=== PATIENT | female | born 1975 ===

== ENCOUNTER 2017-12-03 16:05 | Emergency (ER) | payer OTHER, SELFPAY ==
[2017-12-03 16:25] VITALS: BP 114/74; PULSE 73; RESP 16; TEMP 98.3; O2SAT 98
--- NOTE | 2017-12-03 19:47 | ED PDOC ---
HPI: General Adult Time Seen by Provider: 12/03/17 16:35 Chief Complaint (Nursing): Chest Pain Chief Complaint (Provider): body aches and chest pain History Per: Patient History/Exam Limitations: no limitations Onset/Duration Of Symptoms: Days (5x) Current Symptoms Are (Timing): Still Present Additional Complaint(s): Alek Miranda, a 42 year old female presents to the ED complaining of body pain and chest pain onset five days ago. Reports of fever, throat pain, and cough. Denies vomiting or nausea. Also no sick contacts. PMD: No family provider Past Medical History Reviewed: Historical Data, Nursing Documentation, Vital Signs Vital Signs: Last Vital Signs Temp 98.3 F 12/03/17 16:22 Pulse 73 12/03/17 16:22 Resp 16 12/03/17 16:22 BP 114/74 12/03/17 16:22 Pulse Ox 98 12/09/17 10:35 - Medical History PMH: No Chronic Diseases - Surgical History Surgical History: No Surg Hx - Family History Family History: States: Unknown Family Hx - Social History Current smoker - smoking cessation education provided: No Alcohol: None Drugs: Denies - Allergies Allergies/Adverse Reactions: Allergies Allergy/AdvReac Type Severity Reaction Status Date / Time No Known Allergies Allergy Verified 12/03/17 16:22 Review of Systems ROS Statement: Except As Marked, All Systems Reviewed And Found Negative Constitutional: Positive for: Fever ENT: Positive for: Throat Pain Cardiovascular: Positive for: Chest Pain (5x) Respiratory: Positive for: Cough Musculoskeletal: Positive for: Other (body pain) Physical Exam - Reviewed Nursing Documentation Reviewed: Yes Vital Signs Reviewed: Yes - Physical Exam Appears: Positive for: Well, Non-toxic, No Acute Distress Head Exam: Positive for: ATRAUMATIC, NORMAL INSPECTION, NORMOCEPHALIC Skin: Positive for: Normal Color, Warm, Dry Eye Exam: Positive for: EOMI, Normal appearance, PERRL ENT: Positive for: Normal ENT Inspection Neck: Positive for: Normal, Painless ROM, Supple. Negative for: Decreased ROM Cardiovascular/Chest: Positive for: Regular Rate, Rhythm. Negative for: Murmur , Bradycardia Respiratory: Positive for: Normal Breath Sounds. Negative for: Accessory Muscle Use, Wheezing, Respiratory Distress Gastrointestinal/Abdominal: Positive for: Normal Exam, Bowel Sounds, Soft. Negative for: Tenderness Back: Positive for: Normal Inspection. Negative for: L CVA Tenderness, R CVA Tenderness Extremity: Positive for: Normal ROM. Negative for: Tenderness, Pedal Edema, Deformity Neurologic/Psych: Positive for: Alert, Oriented (x3), Gait - ECG O2 Sat by Pulse Oximetry: 98 (RA) Pulse Ox Interpretation: Normal Medical Decision Making Medical Decision Making: Time: 17:44 Initial Plan: body aches for 5 days --Motrin 600mg --Influenza A B --Reevaluation flu negative symptoms have gone on for 5 days so tamiflu would not be efficatious recommend oral hydration and motrin prn outpt follow up 1-2 day Documented by Saira Erickson acting as a scribe for Juanita Treadwell MD. All medical record entries made by the Scribe were at my direction and personally dictated by me. I have reviewed the chart and agree that the record accurately reflects my personal performance of the history, physical exam, medical decision making, and the department course for this patient. I have also personally directed, reviewed, and agree with the discharge instructions and disposition. Disposition - Clinical Impression Clinical Impression: Viral illness - Patient ED Disposition Is Patient to be Admitted: No Counseled Patient/Family Regarding: Studies Performed, Diagnosis, Need For Followup - Disposition Referrals: [facility] [Outside] [facility] [Outside] Disposition: Routine/Home Disposition Time: 18:35 Condition: IMPROVED Additional Instructions: follow up with your primary doctor in 1-2 days take motrin for pain or fever return to the ED with any worsening or concerning symptoms Instructions: Viral Syndrome (ED) Forms: [employer] (Norwegian) Print Language: INDIAN
[2017-12-03] MEDS ORDERED: Albuterol 0.083% Inhal Sol (2.5 mg/3 mL) UD ONE (19:52)
[2017-12-03] MEDS ORDERED: Albuterol 0.083% Inhal Sol (2.5 mg/3 mL) UD INH ONE (20:44)
== END 2017-12-03 20:20 | disposition home or self-care (01) ==
LOC: H.ER 16:05
DX: B34.9 Viral infection, unspecified (principal)